=== PATIENT | female | born 1960 | race Caucasian/White ===

== ENCOUNTER 2017-02-10 21:33 | Emergency (ER) | payer OTHER ==
[2017-02-10 23:07] VITALS: BP 121/84
== END 2017-02-10 23:08 | disposition home or self-care (01) ==
LOC: ED 21:33
DX: J20.9 Acute bronchitis, unspecified (principal); J45.901 Unspecified asthma with (acute) exacerbation
CPT/HCPCS: J0696; J1100; J7620

== ENCOUNTER 2017-05-14 11:15 | Emergency (ER) | payer OTHER ==
[2017-05-14 12:29] VITALS: BP 106/80
== END 2017-05-14 12:29 | disposition home or self-care (01) ==
LOC: ED 11:15
DX: J20.9 Acute bronchitis, unspecified (principal); J45.901 Unspecified asthma with (acute) exacerbation; Z88.5 Allergy status to narcotic agent; Z88.8 Allergy status to other drugs, medicaments and biological substances
CPT/HCPCS: J2930; J7613; J7644; Q0092

== ENCOUNTER 2017-07-14 18:32 | Emergency (ER) | payer OTHER ==
[2017-07-14 18:40] VITALS: BP 134/96
== END 2017-07-14 19:30 | disposition home or self-care (01) ==
LOC: ED 18:32
DX: J45.901 Unspecified asthma with (acute) exacerbation (principal); J20.9 Acute bronchitis, unspecified; J30.9 Allergic rhinitis, unspecified; E78.00 Pure hypercholesterolemia, unspecified; Z88.5 Allergy status to narcotic agent; Z88.8 Allergy status to other drugs, medicaments and biological substances
CPT/HCPCS: J0696; J1100

== ENCOUNTER → 2018-02-14 | Outpatient (CLI) | payer OTHER ==
[2018-02-14 08:57] LABS: microscopic required? NO
[2018-02-14 09:03] LABS: BASOPHIL % 0.8 % (0-2); PLATELET COUNT 257 x10^3mcL (130-400); RED CELL DISTRIBUTION WIDTH 13.4 % (11.5-14.5)
[2018-02-14 09:21] LABS: ALKALINE PHOSPHATASE 76 U/L (46-116); ALT/SGPT 35 U/L (14-59); AST/SGOT 17 U/L (15-37); BILIRUBIN TOTAL 0.52 mg/dL (0.20-1.00); C REACTIVE PROTEIN 0.9 mg/dL (<=0.9); CALCIUM 9.2 mg/dL (8.5-10.1); CARBON DIOXIDE 28.8 mmol/L (21-32); CHLORIDE SERUM 104 mmol/L (98-107); CREATININE SERUM 0.5 mg/dL (0.6-1.0); GFR1 > 60 mL/min; GLUCOSE SERUM 123 mg/dL (74-106); HDL CHOLESTEROL 55 mg/dL (40-60); POTASSIUM SERUM 4.1 mmol/L (3.5-5.1); SODIUM SERUM 138 mmol/L (136-145); TOTAL PROTEIN, SERUM 7.7 g/dL (6.4-8.2); TRIGLYCERIDES 123 mg/dL (<150)
[2018-02-14 09:31] LABS: CHOLESTEROL 267 mg/dL (<200); CHOLESTEROL/HDL RATIO 4.9
[2018-02-14 09:40] LABS: urine erythrocyte NEGATIVE (NEGATIVE)
[2018-02-14 10:27] LABS: ERYTHROCYTE SED RATE 11 mm/hr (0-30)
[2018-02-15 09:16] LABS: microalbumin:creatinine ratio 6.9 (0.0-30.0)
== END | disposition home or self-care (01) ==
LOC: LB 07:34
PROVIDERS: Family Medicine
DX: E78.5 Hyperlipidemia, unspecified (principal)

== ENCOUNTER → 2018-02-26 | Outpatient (CLI) | payer OTHER | END | disposition home or self-care (01) | LOC: RD 18:38 | DX: M79.643 Pain in unspecified hand (principal) ==

== ENCOUNTER → 2018-04-02 | Outpatient (CLI) | payer OTHER | END | disposition home or self-care (01) | LOC: MA 03-03 14:30 | DX: M77.31 Calcaneal spur, right foot (principal); M77.32 Calcaneal spur, left foot; M76.811 Anterior tibial syndrome, right leg; M72.2 Plantar fascial fibromatosis; Z12.31 Encounter for screening mammogram for malignant neoplasm of breast | CPT/HCPCS: 77067 ==

== ENCOUNTER → 2018-06-11 | Outpatient (CLI) | payer OTHER | END | disposition home or self-care (01) | LOC: MI 13:30 | DX: M25.462 Effusion, left knee (principal) ==

== ENCOUNTER → 2018-06-20 | Outpatient (CLI) | payer OTHER ==
[2018-06-20 08:16] LABS: microscopic required? YES; urine erythrocyte NEGATIVE (NEGATIVE)
[2018-06-20 08:50] LABS: ALBUMIN 3.9 g/dL (3.4-5.0); ALKALINE PHOSPHATASE 88 U/L (46-116); ALT/SGPT 25 U/L (14-59); AST/SGOT 14 U/L (15-37); BILIRUBIN TOTAL 0.3 mg/dL (0.20-1.00); CARBON DIOXIDE 26.5 mmol/L (21-32); CHLORIDE SERUM 108 mmol/L (98-107); CREATININE SERUM 0.6 mg/dL (0.6-1.0); GFR1 > 60 mL/min; GLUCOSE SERUM 110 mg/dL (74-106); POTASSIUM SERUM 4.3 mmol/L (3.5-5.1); SODIUM SERUM 143 mmol/L (136-145); TOTAL PROTEIN, SERUM 7.4 g/dL (6.4-8.2)
== END | disposition home or self-care (01) ==
LOC: LB 07:55
DX: M25.462 Effusion, left knee (principal)

== ENCOUNTER 2018-07-30 23:37 | Emergency (ER) | payer OTHER ==
[~2018-07-30] VITALS: Ht 160 cm; Wt 63.5 kg
[2018-07-31 00:02] VITALS: Ht 160 cm; Wt 63.5 kg
[2018-07-31 00:43] LABS: BASOPHIL % 0.9 % (0-2); PLATELET COUNT 236 x10^3mcL (130-400); RED CELL DISTRIBUTION WIDTH 13.7 % (11.5-14.5)
[2018-07-31 01:08] LABS: CALCIUM 9.4 mg/dL (8.5-10.1); CARBON DIOXIDE 28.7 mmol/L (21-32); CHLORIDE SERUM 104 mmol/L (98-107); CREATININE SERUM 0.8 mg/dL (0.6-1.0); GFR1 > 60 mL/min; GLUCOSE SERUM 120 mg/dL (74-106); POTASSIUM SERUM 4.1 mmol/L (3.5-5.1); SODIUM SERUM 142 mmol/L (136-145)
[2018-07-31 01:26] LABS: ALBUMIN 3.8 g/dL (3.4-5.0); ALKALINE PHOSPHATASE 87 U/L (46-116); ALT/SGPT 30 U/L (14-59); AST/SGOT 17 U/L (15-37); BILIRUBIN TOTAL 0.35 mg/dL (0.20-1.00); TOTAL PROTEIN, SERUM 7.6 g/dL (6.4-8.2)
[2018-07-31 02:19] LABS: ERYTHROCYTE SED RATE 10 mm/hr (0-30)
[2018-07-31 02:20] VITALS: BP 106/66
[2018-08-01 13:35] LABS: RAPID PLASMA REAGIN Non Reactive (Non Reactive)
== END 2018-07-31 02:20 | disposition home or self-care (01) ==
LOC: ED 23:37
PROVIDERS: Emergency Medicine
DX: R21 Rash and other nonspecific skin eruption (principal); E78.00 Pure hypercholesterolemia, unspecified; J45.909 Unspecified asthma, uncomplicated; Z88.5 Allergy status to narcotic agent
CPT/HCPCS: 36415

== ENCOUNTER → 2018-09-12 | Outpatient (CLI) | payer OTHER ==
[2018-09-12 09:01] LABS: BASOPHIL % 0.6 % (0-2); PLATELET COUNT 283 x10^3mcL (130-400); RED CELL DISTRIBUTION WIDTH 13.7 % (11.5-14.5)
[2018-09-12 09:11] LABS: ALBUMIN 4.1 g/dL (3.4-5.0); ALKALINE PHOSPHATASE 96 U/L (46-116); ALT/SGPT 32 U/L (14-59); AST/SGOT 17 U/L (15-37); BILIRUBIN TOTAL 0.4 mg/dL (0.20-1.00); CALCIUM 9.3 mg/dL (8.5-10.1); CARBON DIOXIDE 30.9 mmol/L (21-32); CHLORIDE SERUM 101 mmol/L (98-107); CREATININE SERUM 0.6 mg/dL (0.6-1.0); GFR1 > 60 mL/min; GLUCOSE SERUM 121 mg/dL (74-106); POTASSIUM SERUM 4.3 mmol/L (3.5-5.1); SODIUM SERUM 137 mmol/L (136-145); TOTAL PROTEIN, SERUM 8.1 g/dL (6.4-8.2)
== END | disposition home or self-care (01) ==
LOC: LB 08:28
DX: T14.8XXA Other injury of unspecified body region, initial encounter (principal); X58.XXXA Exposure to other specified factors, initial encounter; Y92.9 Unspecified place or not applicable

== ENCOUNTER 2018-10-15 23:20 | Emergency (ER) | payer OTHER ==
[2018-10-16 00:49] VITALS: BP 107/88
== END 2018-10-16 01:14 | disposition home or self-care (01) ==
LOC: ED 23:20
DX: S61.230A Puncture wound without foreign body of right index finger without damage to nail, initial encounter (principal); X58.XXXA Exposure to other specified factors, initial encounter; Y93.89 Activity, other specified; Y92.89 Other specified places as the place of occurrence of the external cause; Y99.8 Other external cause status
CPT/HCPCS: 90715

== ENCOUNTER → 2018-10-24 | Outpatient (CLI) | payer OTHER | END | disposition home or self-care (01) | LOC: LB 10:08 | DX: R73.9 Hyperglycemia, unspecified (principal) ==

== ENCOUNTER → 2018-11-30 | Outpatient (REF) | LOC: LB 15:33 ==

== ENCOUNTER 2018-12-23 21:34 | Emergency (ER) | payer OTHER ==
[~2018-12-23] VITALS: Ht 160 cm; Wt 61.2 kg
[2018-12-23 21:39] VITALS: Ht 160 cm; Wt 61.2 kg
[2018-12-23 23:18] VITALS: BP 131/84
== END 2018-12-23 23:18 | disposition home or self-care (01) ==
LOC: ED 21:34
DX: S83.92XA Sprain of unspecified site of left knee, initial encounter (principal); J45.909 Unspecified asthma, uncomplicated; E78.00 Pure hypercholesterolemia, unspecified; Z88.5 Allergy status to narcotic agent; Z88.6 Allergy status to analgesic agent; W01.0XXA Fall on same level from slipping, tripping and stumbling without subsequent striking against object, initial encounter; Y93.89 Activity, other specified; Y92.89 Other specified places as the place of occurrence of the external cause; Y99.8 Other external cause status
CPT/HCPCS: J1885

== ENCOUNTER → 2019-01-13 | Outpatient (REF) | LOC: EH 16:57 ==

== ENCOUNTER → 2019-04-13 | Outpatient (CLI) | payer OTHER ==
[2019-04-13 16:43] LABS: PLATELET COUNT 292 x10^3mcL (130-400)
[2019-04-13 16:46] LABS: ALBUMIN 3.9 g/dL (3.4-5.0); ALKALINE PHOSPHATASE 88 U/L (46-116); ALT/SGPT 31 U/L (14-59); AST/SGOT 12 U/L (15-37); BILIRUBIN TOTAL 0.33 mg/dL (0.20-1.00); CALCIUM 9.6 mg/dL (8.5-10.1); CARBON DIOXIDE 24.4 mmol/L (21-32); CHLORIDE SERUM 101 mmol/L (98-107); CREATININE SERUM 0.6 mg/dL (0.6-1.0); GFR1 > 60 mL/min; GLUCOSE SERUM 138 mg/dL (74-106); POTASSIUM SERUM 3.7 mmol/L (3.5-5.1); SODIUM SERUM 135 mmol/L (136-145); TOTAL PROTEIN, SERUM 7.8 g/dL (6.4-8.2)
[2019-04-13 17:48] LABS: BAND NEUTROPHIL 1 % (0-10); BASOPHIL 0 % (0-2); MONOCYTE 15 % (0-7); SEGMENTED NEUTROPHILS 56 % (37-75)
[2019-04-13 17:49] LABS: PLATELET MORPHOLOGY PLATELETS NORMAL; rbc morphology (normal/abnorm) NORMAL (NORMAL)
== END | disposition home or self-care (01) ==
LOC: LB 15:32
DX: D69.2 Other nonthrombocytopenic purpura (principal); R23.3 Spontaneous ecchymoses

== ENCOUNTER → 2019-06-15 | Outpatient (CLI) | payer OTHER ==
[2019-06-15 18:31] LABS: BASOPHIL % 0.6 % (0-2); PLATELET COUNT 259 x10^3mcL (130-400); RED CELL DISTRIBUTION WIDTH 13.6 % (11.5-14.5)
[2019-06-15 18:51] LABS: ALBUMIN 4.2 g/dL (3.4-5.0); ALKALINE PHOSPHATASE 86 U/L (46-116); ALT/SGPT 30 U/L (14-59); AST/SGOT 15 U/L (15-37); BILIRUBIN TOTAL 0.31 mg/dL (0.20-1.00); CALCIUM 8.5 mg/dL (8.5-10.1); CARBON DIOXIDE 28.6 mmol/L (21-32); CHLORIDE SERUM 102 mmol/L (98-107); CREATININE SERUM 0.7 mg/dL (0.6-1.0); GFR1 > 60 mL/min; GLUCOSE SERUM 144 mg/dL (74-106); POTASSIUM SERUM 3.4 mmol/L (3.5-5.1); SODIUM SERUM 141 mmol/L (136-145); TOTAL PROTEIN, SERUM 7.9 g/dL (6.4-8.2)
== END | disposition home or self-care (01) ==
LOC: LB 17:00
DX: D64.9 Anemia, unspecified (principal); R79.1 Abnormal coagulation profile
CPT/HCPCS: 85246; 85250

== ENCOUNTER 2019-11-06 11:16 | Emergency (ER) | payer OTHER ==
[~2019-11-06] VITALS: Ht 157.5 cm; Wt 61.7 kg
[2019-11-06 11:39] VITALS: BP 131/80; Ht 157.5 cm; Wt 61.7 kg
== END 2019-11-06 12:00 | disposition home or self-care (01) ==
LOC: ED 11:16
DX: R51 Headache (principal); J45.909 Unspecified asthma, uncomplicated; Z88.5 Allergy status to narcotic agent; Z88.6 Allergy status to analgesic agent

== ENCOUNTER → 2020-03-08 | Outpatient (CLI) | payer OTHER | END | disposition home or self-care (01) | LOC: MI 11:49 | PROC: BQ38ZZZ Magnetic Resonance Imaging (MRI) of Left Knee (ICD-10-PCS; principal; 2020-03-08) | DX: M17.12 Unilateral primary osteoarthritis, left knee (principal) ==

== ENCOUNTER → 2020-06-05 | Outpatient (CLI) | payer OTHER | END | disposition home or self-care (01) | LOC: RD 06-01 15:05 | DX: M47.892 Other spondylosis, cervical region (principal) ==

== ENCOUNTER → 2020-07-09 | Outpatient (CLI) | payer OTHER ==
[2020-07-09 10:17] LABS: BASOPHIL % 0.7 % (0-2); PLATELET COUNT 247 x10^3mcL (130-400); RED CELL DISTRIBUTION WIDTH 13.8 % (11.5-14.5)
[2020-07-09 11:35] LABS: ALBUMIN 3.8 g/dL (3.4-5.0); ALKALINE PHOSPHATASE 74 U/L (46-116); ALT/SGPT 30 U/L (14-59); AST/SGOT 13 U/L (15-37); BILIRUBIN TOTAL 0.4 mg/dL (0.20-1.00); CARBON DIOXIDE 29.4 mmol/L (21-32); CHLORIDE SERUM 105 mmol/L (98-107); CREATININE SERUM 0.6 mg/dL (0.6-1.0); GFR1 > 60 mL/min; GLUCOSE SERUM 141 mg/dL (74-106); HDL CHOLESTEROL 51 mg/dL (40-60); POTASSIUM SERUM 4.2 mmol/L (3.5-5.1); SODIUM SERUM 140 mmol/L (136-145); TOTAL PROTEIN, SERUM 7.7 g/dL (6.4-8.2); TRIGLYCERIDES 143 mg/dL (<150)
[2020-07-09 11:36] LABS: CHOLESTEROL 254 mg/dL (<200)
== END | disposition home or self-care (01) ==
LOC: LB 07:00
DX: E11.9 Type 2 diabetes mellitus without complications (principal)

== ENCOUNTER 2020-09-06 10:12 | Emergency (ER) | payer OTHER ==
[~2020-09-06] VITALS: Ht 157.5 cm; Wt 63.7 kg
[2020-09-06 10:21] VITALS: BP 120/79; Ht 157.5 cm; Wt 63.7 kg
== END 2020-09-06 13:19 | disposition home or self-care (01) ==
LOC: ED 10:12
DX: S46.001A Unspecified injury of muscle(s) and tendon(s) of the rotator cuff of right shoulder, initial encounter (principal); X50.0XXA Overexertion from strenuous movement or load, initial encounter; Y93.89 Activity, other specified; Y92.89 Other specified places as the place of occurrence of the external cause; Y99.8 Other external cause status